=== PATIENT | female | born 1945 | race Caucasian/White ===

== ENCOUNTER → 2016-07-03 | Day surgery (SDC) | payer MEDICARE, BC ==
[2016-07-03] VITALS (14 sets, daily range): BP systolic 97–134; BP diastolic 42–78
[~2016-07-03] VITALS: Ht 158.8 cm; Wt 45.4 kg
[~2016-07-03] MED LIST: BSS 15ml BTL ONE; BSS 500ml btl ONE; Dexamethasone 4mg/ml vial ONE; EFFEXOR XR150 MG ORAL; EPINEPHrine 1mg/1ml Amp ONE; Hydromorphone 0.5mg/0.5ml inj IVP PRN; LR 1000ml ONE; Lidocaine 1% MPF 10mg/ml 5ml ONE; MELOXICAM15 MG PO; Midazolam 2mg/2ml Inj ONE; NS Irrig 1000ml ONE; Povidone-Iodine 5% opth solution ONE; SEROQUEL25 MG ORAL; SYNTHROID25 MCG ORAL; Sodium Hyaluronate 14 mg/ml 0.85ml ONE; Sterile Water Irrig 1000ml IRRIG ONE; XANAX0.5 MG ORAL; fentaNYL 100 mcg/2 mL IV ONE
[2016-07-03] MEDS: Tropicamide 1% Opth Soln LEFT EYE SCH ×3 (07:28→07:54)
[2016-07-03] MEDS: Phenylephrine 2.5% Op Soln LEFT EYE SCH ×3 (07:28→07:54)
[2016-07-03] MEDS: Tobradex Opth Susp 2.5ml LEFT EYE SCH ×3 (07:29→07:55)
[2016-07-03] MEDS: Gatifloxacin Opth Solution 0.5% LEFT EYE SCH ×3 (07:29→07:55)
[2016-07-03] MEDS: Diclofenac Sod 0.1% Op Soln LEFT EYE SCH ×3 (07:30→07:55)
[2016-07-03] MEDS: Akten 3.5% 1ml Btl LEFT EYE SCH ×3 (07:30→07:55)
--- NOTE | 2016-07-03 07:40 | Pre-Procedure Note/Attestation ---
Pre-Procedure Note/Attestation Complete Prior to Procedure Planned Procedure: left Procedure Narrative: cataract extraction with implant left eye Indications for Procedure Pre-Operative Diagnosis: cataract left eye Attestation I attest that I discussed the nature of the procedure; its benefits; risks and complications; and alternatives (and the risks and benefits of such alternatives ), prior to the procedure, with the patient (or the patient's legal pharmaceutical specialty representative). I attest that, if there was a reasonable possibility of needing a blood transfusion, the patient (or the patient's legal pharmaceutical specialty representative) was given the [facility] standardized written summary, pursuant to the Bryan Diya Blood Safety Act ([place] Health and Safety Code # 1645, as amended). I attest that I re-evaluated the patient just prior to the surgery and that there has been no change in the patient's H&P, except as documented below: CLEMENCIA CHONG Jul 03, 2016 07:40
--- NOTE | 2016-07-03 09:16 | Anethesia Preoperative Eval ---
Anesthesia Pre-op PMH/ROS General Date of Evaluation: Jul 03, 2016 Time of Evaluation: 08:55 Anesthesiologist: JEMIMA ASA Score: ASA 2 Mallampati Score Class I : Soft palate, uvula, fauces, pillars visible Class II: Soft palate, uvula, fauces visible Class III: Soft palate, base of uvula visible Class IV: Only hard plate visible Mallampati Classification: Class II Surgeon: CASTILLO Diagnosis: CATARACT L Surgical Procedure: REMOOVAL LENS IMPLANT L EYE Anesthesia History: none Family History: no anesthesia problems Allergies: Coded Allergies: No Known Allergies (Unverified , 07/02/16) Medications: see eMAR Past Medical History Cardiovascular: Denies: CAD, HTN, VT, arrhythmia, other, valve dz Pulmonary: Denies: COPD, TALA, asthma, other Gastrointestinal/Genitourinary: Denies: CRI, ESRD, GERD, other Neurologic/Psychiatric: Reports: depression/anxiety Endocrine: Denies: DM, hypothyroidism, other, steroids HEENT: Reports: cataract (L) Hematology/Immune: Denies: DVT, anemia, bleeding disorder, other Musculoskeletal/Integumentary: Denies: DDD, DJD, OA, RA, edema, other Anesthesia Pre-op Phys. Exam Physician Exam Last Vital Signs Date Time Temp Pulse Resp B/P Pulse Ox O2 Delivery O2 Flow Rate FiO2 07/03/16 07:51 97.8 71 18 122/77 96 Room Air Constitutional: NAD Neurologic: CN 2-12 intact Cardiovascular: RRR Respiratory: CTA Gastrointestinal: S/NT/ND Airway Exam Mallampati Score: Class II MO: full ROM: full Teeth: intact Dentures: no lower, no upper Anesthesia Pre-op A/P Risk Assessment & Plan Assessment: ASA 2 Plan: MAC Status Change Before Surgery: No Pre-Antibiotics Given Within 1 Hr of Incision: WALE Parker M.D. Jul 03, 2016 09:16
--- NOTE | 2016-07-03 09:18 | Immediate Post-Op Evaluation ---
Immediate Post-Op Evalulation Immediate Post-Op Evalulation Procedure: CATARACT REMOVAL LENS IMPLANT Date of Evaluation: Jul 03, 2016 Time of Evaluation: 10:05 IV Fluids: 500 Blood Products: 0 Estimated Blood Loss: 0 Urinary Output: 0 Blood Pressure Systolic: 134 Blood Pressure Diastolic: 78 Pulse Rate: 69 Respiratory Rate: 15 O2 Sat by Pulse Oximetry: 99 Temperature (Fahrenheit): 98 Pain Score (1-10): 0 Nausea: No Vomiting: No Complications 0 Patient Status: patent, none Hydration Status: adequate Given Within 1 Hr of Incision: WALE Parker M.D. Jul 03, 2016 09:18
--- NOTE | 2016-07-03 09:18 | 48 Hour Post Anesthesia Eval ---
Post Anesthesia Evaluation Procedure: CATARACT REMOVAL LENS IMPLANT Date of Evaluation: Jul 03, 2016 Time of Evaluation: 12:00 Blood Pressure Systolic: 134 Pulse Rate: 77 Respiratory Rate: 15 Temperature (Fahrenheit): 98 O2 Sat by Pulse Oximetry: 99 Airway: patent Nausea: No Vomiting: No Pain Intensity: 1 Hydration Status: adequate Cardiopulmonary Status: WNL Mental Status/LOC: patient returned to baseline Post-Anesthesia Complications: 0 Follow-up care needed: ready to discharge WALE ONOFRE M.D. Jul 03, 2016 09:18
--- NOTE | 2016-07-03 09:40 | Brief Operative Note ---
Immediate Post Operative Note Operative Note Pre-op Diagnosis: cataract left eye Procedure: phacoemulsification of cataract with implant left eye Post-op Diagnosis: same as pre-op Surgeon: clemencia ocampo Press Feeder: none Anesthesiologist: sola davalos Anesthesia: MAC Specimen: none Complications: none Condition: stable Estimated Blood Loss: none Drains: none Implant(s) used?: Yes CLEMENCIA OCAMPO Jul 03, 2016 09:40
--- NOTE | 2016-07-03 17:39 | Operative Note - Dictated ---
DATE OF OPERATION: 07/03/2016 PREOPERATIVE DIAGNOSIS: Cataract, left eye. POSTOPERATIVE DIAGNOSIS: Cataract, left eye. PROCEDURE: Phacoemulsification of cataract, left eye with placement of posterior chamber intraocular lens. SURGEON: Wilfrid Anderson M.D. ([facility]) PLANT GUIDE: None. ANESTHESIA: MAC/topical. ANESTHESIOLOGIST: Dr. Olaf Lee. INDICATION FOR PROCEDURE: Poor vision, left eye. DESCRIPTION OF FINDINGS: Nuclear sclerotic and cortical cataract, left eye. DESCRIPTION OF PROCEDURE: The patient received a topical anesthetic block consisting of 3.5% Akten eye drops. The eye was then prepped and draped in usual manner. A lid speculum was placed. An operating Zeiss microscope was positioned. The temporal corneal groove was made with the crescent blade. A SuperSharp blade made a stab incision at the 6 o'clock position. A 0.1 mL of 1% nonpreserved intracameral lidocaine was injected. Healon was instilled into the anterior chamber and a 2.5/2.8 mm trapezoidal keira blade was used to complete the temporal corneal wound. A cystotome was used to create an anterior capsular flap. Utrata forceps were used to complete the capsulorrhexis. BSS on a cannula was used to hydrodissect the nucleus. The lens nucleus was phacoemulsified in a phaco-fracture technique. Remaining cortical material was removed with the I/A and the posterior capsule polished with the I/A on Cap vac. Healon was reinstilled into the capsular bag and the anterior chamber, and an De Jesus foldable one-piece posterior chamber intraocular lens, model ZCB00, power 19.0 diopter, serial #[id number] was placed in the injector. The lens was put in the capsular bag. The I/A tip was used to remove the Healon and position the lens. The wound edge was hydrated with BSS and a blunt-tipped cannula. The wound was checked and found to be watertight. The lid speculum was removed and a drop of TobraDex and Zymaxid was placed. A clear plastic shield was taped over the eye. The patient tolerated the procedure well and left the operating room in good condition. Wilfrid Anderson M.D. ([facility]) DR: BRODY JOB#: [id number] CC: Gisel Cool M.D.
== END | disposition home or self-care (01) ==
LOC: SUR 06:29
DX: H25.12 Age-related nuclear cataract, left eye (principal); H25.012 Cortical age-related cataract, left eye; F32.9 Major depressive disorder, single episode, unspecified; F41.9 Anxiety disorder, unspecified; M19.041 Primary osteoarthritis, right hand; I35.1 Nonrheumatic aortic (valve) insufficiency; Z85.038 Personal history of other malignant neoplasm of large intestine; Z86.19 Personal history of other infectious and parasitic diseases; Z87.891 Personal history of nicotine dependence
CPT/HCPCS: 66984; J0171; J1100; J2250; J2405; J3010; J7120; V2632; 94003; 94150

== ENCOUNTER 2016-10-16 05:48 | Day surgery (SDC) | payer MEDICARE, BC ==
[2016-10-16] VITALS (8 sets, daily range): BP systolic 109–123; BP diastolic 45–74
[~2016-10-16] VITALS: Ht 156.2 cm; Wt 45.4 kg
[~2016-10-16 05:48] MED LIST changes: -BSS 15ml BTL ONE; -BSS 500ml btl ONE; -Dexamethasone 4mg/ml vial ONE; -EPINEPHrine 1mg/1ml Amp ONE; -Hydromorphone 0.5mg/0.5ml inj IVP PRN; -LR 1000ml ONE; -Lidocaine 1% MPF 10mg/ml 5ml ONE; -Midazolam 2mg/2ml Inj ONE; -NS Irrig 1000ml ONE; -Povidone-Iodine 5% opth solution ONE; -Sodium Hyaluronate 14 mg/ml 0.85ml ONE; -Sterile Water Irrig 1000ml IRRIG ONE; -fentaNYL 100 mcg/2 mL IV ONE
[2016-10-16] MEDS ORDERED: BSS 500ml btl ONE (06:28)
[2016-10-16] MEDS ORDERED: EPINEPHrine 1mg/1ml Amp ONE (06:28)
[2016-10-16] MEDS ORDERED: Lidocaine 1% MPF 10mg/ml 5ml ONE (06:28)
[2016-10-16] MEDS ORDERED: Sodium Hyaluronate 14 mg/ml 0.85ml ONE (06:28)
[2016-10-16] MEDS ORDERED: Dexamethasone 4mg/ml vial ONE (06:28)
[2016-10-16] MEDS ORDERED: BSS 15ml BTL ONE (06:28)
[2016-10-16] MEDS ORDERED: Povidone-Iodine 5% opth solution ONE (06:28)
[2016-10-16] MEDS ORDERED: Phenylephrine 2.5% Op Soln ONE (06:52)
[2016-10-16] MEDS ORDERED: Gatifloxacin Opth Solution 0.5% ONE (06:52)
[2016-10-16] MEDS ORDERED: Akten 3.5% 1ml Btl ONE (06:52)
[2016-10-16] MEDS ORDERED: Diclofenac Sod 0.1% Op Soln ONE (06:52)
[2016-10-16] MEDS ORDERED: Tobradex Opth Susp 2.5ml ONE (06:52)
[2016-10-16] MEDS ORDERED: Tropicamide 1% Opth Soln ONE (06:52)
[2016-10-16] MEDS: Akten 3.5% 1ml Btl RIGHT EYE SCH ×3 (06:56→07:17)
[2016-10-16] MEDS: Phenylephrine 2.5% Op Soln RIGHT EYE SCH ×3 (06:56→07:17)
[2016-10-16] MEDS: Diclofenac Sod 0.1% Op Soln RIGHT EYE SCH ×3 (06:56→07:17)
[2016-10-16] MEDS: Gatifloxacin Opth Solution 0.5% RIGHT EYE SCH ×3 (06:56→07:17)
[2016-10-16] MEDS: Tobradex Opth Susp 2.5ml RIGHT EYE SCH ×3 (06:57→07:17)
[2016-10-16] MEDS: Tropicamide 1% Opth Soln RIGHT EYE SCH ×3 (06:57→07:17)
[2016-10-16] MEDS ORDERED: Midazolam 2mg/2ml Inj ONE (08:00)
[2016-10-16] MEDS ORDERED: fentaNYL 100 mcg/2 mL IV ONE (08:00)
[2016-10-16] MEDS ORDERED: Sterile Water Irrig 1000ml IRRIG ONE (08:00)
[2016-10-16] MEDS ORDERED: LR 1000ml ONE (08:00)
[2016-10-16] MEDS ORDERED: NS Irrig 1000ml ONE (08:00)
--- NOTE | 2016-10-16 08:07 | Pre-Procedure Note/Attestation ---
Pre-Procedure Note/Attestation Complete Prior to Procedure Planned Procedure: right Procedure Narrative: cataract extraction with implant right eye Indications for Procedure Pre-Operative Diagnosis: cataract right eye Attestation I attest that I discussed the nature of the procedure; its benefits; risks and complications; and alternatives (and the risks and benefits of such alternatives ), prior to the procedure, with the patient (or the patient's legal sales representative groceries). I attest that, if there was a reasonable possibility of needing a blood transfusion, the patient (or the patient's legal sales representative groceries) was given the [facility] standardized written summary, pursuant to the Bryan Lapwai Blood Safety Act ([place] Health and Safety Code # 1645, as amended). I attest that I re-evaluated the patient just prior to the surgery and that there has been no change in the patient's H&P, except as documented below: CLEMENCIA CHONG Oct 16, 2016 08:07
--- NOTE | 2016-10-16 08:14 | Anethesia Preoperative Eval ---
Anesthesia Pre-op PMH/ROS General Date of Evaluation: Oct 16, 2016 Time of Evaluation: 08:13 Anesthesiologist: karen ASA Score: ASA 2 Mallampati Score Class I : Soft palate, uvula, fauces, pillars visible Class II: Soft palate, uvula, fauces visible Class III: Soft palate, base of uvula visible Class IV: Only hard plate visible Mallampati Classification: Class II Surgeon: Justin Diagnosis: cataract Surgical Procedure: cataract extraction Anesthesia History: none Family History: no anesthesia problems Allergies: Coded Allergies: No Known Allergies (Unverified , 07/02/16) Medications: see eMAR Past Medical History Cardiovascular: Denies: CAD, HTN, NV, arrhythmia, other, valve dz Pulmonary: Denies: COPD, TALA, asthma, other Gastrointestinal/Genitourinary: Denies: CRI, ESRD, GERD, other Neurologic/Psychiatric: Reports: depression/anxiety Endocrine: Reports: hypothyroidism HEENT: Reports: cataract (R) Hematology/Immune: Denies: DVT, anemia, bleeding disorder, other Musculoskeletal/Integumentary: Denies: DDD, DJD, OA, RA, edema, other PSxH Narrative: cataration left eye Anesthesia Pre-op Phys. Exam Physician Exam Last Vital Signs Date Time Temp Pulse Resp B/P Pulse Ox O2 Delivery O2 Flow Rate FiO2 10/16/16 07:04 98.5 72 18 123/74 94 Room Air Constitutional: NAD Neurologic: CN 2-12 intact Cardiovascular: RRR Respiratory: CTA Gastrointestinal: S/NT/ND Airway Exam Mallampati Score: Class II MO: full ROM: full Dentures: no lower, no upper Anesthesia Pre-op A/P Studies Pre-op Studies: EKG - sr Risk Assessment & Plan Plan: mac Status Change Before Surgery: No Pre-Antibiotics Drug: none MARCRIBING DANGELO NEUROSURGERY RESEARCH DIRECTOR Oct 16, 2016 08:14
--- NOTE | 2016-10-16 08:50 | Brief Operative Note ---
Immediate Post Operative Note Operative Note Pre-op Diagnosis: cataract right eye Procedure: phacoemulsification of cataract with implant right eye Post-op Diagnosis: same as pre-op Surgeon: clemencia ocampo Teacher Of The Handicapped: none Anesthesiologist: heather jones crna Anesthesia: MAC Specimen: none Complications: none Condition: stable Estimated Blood Loss: none Drains: none Implant(s) used?: Yes CLEMENCIA OCAMPO Oct 16, 2016 08:50
--- NOTE | 2016-10-16 08:53 | Immediate Post-Op Evaluation ---
Immediate Post-Op Evalulation Immediate Post-Op Evalulation Procedure: cataract extraction right eye Date of Evaluation: Oct 16, 2016 Time of Evaluation: 08:53 IV Fluids: 300 Blood Pressure Systolic: 114 Blood Pressure Diastolic: 61 Pulse Rate: 62 Respiratory Rate: 14 O2 Sat by Pulse Oximetry: 97 Temperature (Fahrenheit): 98.9 Nausea: No Vomiting: No Complications none Patient Status: awake, reacts, patent Hydration Status: adequate Drug: none TARRILLIONBNIG ELEVATOR REPAIRER HELPER Oct 16, 2016 08:53
--- NOTE | 2016-10-16 09:54 | 48 Hour Post Anesthesia Eval ---
Post Anesthesia Evaluation Procedure: cataract extraction right eye Date of Evaluation: Oct 16, 2016 Time of Evaluation: 09:54 Blood Pressure Systolic: 110 0: 45 Pulse Rate: 70 Respiratory Rate: 14 Airway: patent Nausea: No Vomiting: No Hydration Status: adequate Cardiopulmonary Status: stable Mental Status/LOC: patient returned to baseline Post-Anesthesia Complications: none Follow-up care needed: N/A BING STODDARD CRNA Oct 16, 2016 09:54
--- NOTE | 2016-10-16 21:40 | Operative Note - Dictated ---
DATE OF OPERATION: 10/16/2016 PREOPERATIVE DIAGNOSIS: Cataract, right eye. POSTOPERATIVE DIAGNOSIS: Cataract, right eye. PROCEDURE: Phacoemulsification cataract right eye with placement of posterior chamber intraocular lens. SURGEON: Wilfrid Anderson M.D. ACCOUNTING SPECIALIST: None. ANESTHESIA: MAC/topical. ANESTHESIOLOGIST: [place] Ceja C.R.N.A. INDICATION FOR PROCEDURE: Poor vision, right eye. DESCRIPTION OF FINDINGS: Nuclear sclerotic, cortical and posterior subcapsular cataract, right eye. DESCRIPTION OF PROCEDURE: The patient received a topical anesthetic block consisting of 3.5% Akten eye drops. The eye was then prepped and draped in the usual manner. A lid speculum was placed and a Zeiss microscope was positioned. A temporal corneal groove was made with the keira blade. A SuperSharp blade made a stab incision at the 12 o'clock position. A 0.1 mL of 1% nonpreserved intracameral lidocaine was injected. Healon was instilled into the anterior chamber and a 2.5/2.8 mm trapezoidal keira blade was used to complete the temporal corneal wound. A cystotome was used to create an anterior capsular flap. Utrata forceps were used to complete the capsulorrhexis. BSS on a cannula was used to hydrodissect the nucleus. The lens nucleus phacoemulsified in a phaco-fracture technique. Remaining cortical material was removed with the I/A and the posterior capsule polished with the I/A on Cap vac. Healon was instilled into the capsular bag and anterior chamber, and an De Jesus foldable one-piece posterior chamber intraocular lens model ZCB00, power 19.0 diopter, serial #[id number] was placed in the injector. The lens was put into the capsular bag. The I/A tip was used to remove the Healon and position the lens. The wound edge was hydrated with BSS and a blunt-tipped cannula. The wound was checked and found to be watertight. The lid speculum was removed and drop of TobraDex and Zymaxid was placed. A clear plastic shield was taped over the eye. The patient tolerated the procedure well and left the operating room in good condition. Wilfrid Anderson M.D. ([facility]) DR: ALESIA JOB#: [id number] CC:
== END 2016-10-16 09:55 | disposition home or self-care (01) ==
LOC: SUR 05:48
DX: H25.811 Combined forms of age-related cataract, right eye (principal); E03.9 Hypothyroidism, unspecified; F32.9 Major depressive disorder, single episode, unspecified; F41.9 Anxiety disorder, unspecified; Z85.038 Personal history of other malignant neoplasm of large intestine; Z87.891 Personal history of nicotine dependence
CPT/HCPCS: 66984; J0171; J1100; J2250; J3010; J7120; V2632; 94003; 94150